=== PATIENT | female | born 1995 | race Caucasian/White ===

== ENCOUNTER 2021-04-15 15:26 | Emergency (ER) | payer OTHER, BC ==
[2021-04-15] MEDS ORDERED: Sodium Chloride 0.9% 10 ML Syringe FLUSH PRN (16:16)
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
[2021-04-15] MEDS ORDERED: Diphtheria,Pertussis(Acell),Tetanus Vaccine 0.5 ML Syringe IM ONE (16:31)
[2021-04-15] MEDS ORDERED: Iopamidol 755 Mg/ML 75 ML Bottle IV ONE (17:06)
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
== END 2021-04-15 18:45 | disposition home or self-care (01) ==
LOC: FB.ED 15:26
DX: S30.1XXA Contusion of abdominal wall, initial encounter (principal); S70.01XA Contusion of right hip, initial encounter; S60.812A Abrasion of left wrist, initial encounter; S00.81XA Abrasion of other part of head, initial encounter; Z23 Encounter for immunization; W22.8XXA Striking against or struck by other objects, initial encounter; V49.40XA Driver injured in collision with unspecified motor vehicles in traffic accident, initial encounter
CPT/HCPCS: 71260; 73110; 73562; 73630; 74177; 80053; 81001; 81025; 84484; 85025; 90471; 90715; 93005; 99284; Q9967